=== PATIENT | male | born 1980 | race Caucasian/White ===

== ENCOUNTER 2018-06-04 10:54 | Emergency (ER) | payer BC ==
[~2018-06-04] VITALS: Ht 175.3 cm; Wt 124.7 kg
[2018-06-04 11:08] VITALS: BP 155/87
--- NOTE | 2018-06-04 11:56 | RAD ---
KNEE LEFT 3V History: Left knee pain after working out one day ago, buckling of the knee while falling Comparison: None. Findings: 3 views of the left knee are submitted. No acute fracture or dislocation is identified. There is relative superior elevation of the patella. Joint spaces are adequate. Impression: 1. No acute fracture is identified. 2. There is somewhat superior elevation of the patella, question if any suspicion for patellar tendon injury? Electronically signed by: Dread Bailon MD (06/04/2018 11:53 AM) [facility] [place]
[2018-06-04] MEDS ORDERED: HYDR-971 PO (12:03)
--- NOTE | 2018-06-04 12:03 | PHYS DOC ---
Past Medical History Past Medical History: Asthma Past Surgical History: No Surgical History Alcohol Use: None Drug Use: None Adult General Chief Complaint Chief Complaint: KNEE INJURY HPI HPI Patient is a 37 year old male who presents with left knee pain. The patient states that he was working out at the gym and slipped on a wet area of the floor. He felt a tearing above his left knee. He is continuing to have pain in that area and states that it is very painful to flex his knee. He denies any other injury. He is able to ambulate on that extremity but states that it is tender to do so. Review of Systems Review of Systems Constitutional: Denies fever or chills [] Respiratory: Denies cough or shortness of breath [] Cardiovascular: No additional information not addressed in HPI [] GI: Denies abdominal pain, nausea, vomiting, bloody stools or diarrhea [] : Denies dysuria or hematuria [] Musculoskeletal: See history of present illness Integument: Denies rash or skin lesions [] Neurologic: Denies headache, focal weakness or sensory changes [] Endocrine: Denies polyuria or polydipsia [] All other systems were reviewed and found to be within normal limits, except as documented in this note. Allergies Allergies Allergies Coded Allergies Type Severity Reaction Last Updated Verified No Known Drug Allergies 06/04/18 No Physical Exam Physical Exam Constitutional: Well developed, well nourished, no acute distress, non-toxic appearance. [] HENT: Normocephalic, atraumatic, bilateral external ears normal, oropharynx moist, no oral exudates, nose normal. [] Eyes: PERRLA, EOMI, conjunctiva normal, no discharge. [] Neck: Normal range of motion, no tenderness, supple, no stridor. [] Cardiovascular:Heart rate regular rhythm, no murmur [] Lungs & Thorax: Bilateral breath sounds clear to auscultation [] Abdomen: Bowel sounds normal, soft, no tenderness, no masses, no pulsatile masses. [] Skin: Warm, dry, no erythema, no rash. [] Back: No tenderness, no CVA tenderness. [] Extremities: tenderness to patella, crepitus noted, no cyanosis, no clubbing, ROM decreased due to pain, no fluid noted around knee Neurologic: Alert and oriented X 3, normal motor function, normal sensory function, no focal deficits noted. [] Psychologic: Affect normal, judgement normal, mood normal. [] Current Patient Data Vital Signs Vital Signs Date Time Temp Pulse Resp B/P (MAP) Pulse Ox O2 Delivery O2 Flow Rate FiO2 06/04/18 11:08 98.0 79 16 155/87 (109) 97 Room Air 98.0 EKG EKG [] Radiology/Procedures Radiology/Procedures []PATIENT: KATIE BARNES CACCOUNT: [id number]#: [id number] : 1980 LOCATION: ER AGE: 37 SEX: M EXAM STATUS: REG ER ORD. PHYSICIAN: CHERY PORTILLO APRN REASON: injury working out yesterday PROCEDURE: KNEE LEFT 3V KNEE LEFT 3V History: Left knee pain after working out one day ago, buckling of the knee while falling Comparison: None. Findings: 3 views of the left knee are submitted. No acute fracture or dislocation is identified. There is relative superior elevation of the patella. Joint spaces are adequate. Impression: 1. No acute fracture is identified. 2. There is somewhat superior elevation of the patella, question if any suspicion for patellar tendon injury? Electronically signed by: Harsh Quezada MD (06/04/2018 11:53 AM) [place] DICTATED and SIGNED BY: HARSH QUEZADA MD DATE: 06/04/18 1151 Course & Med Decision Making Course & Med Decision Making Pertinent Labs and Imaging studies reviewed. (See chart for details) He was placed in a knee immobilizer and will follow up with Dr. Avina for further evaluation. Dragon Disclaimer Dragon Disclaimer This electronic medical record was generated, in whole or in part, using a voice recognition dictation system. Departure Departure Impression: Primary Impression: Patellar tendon strain Disposition: 01 HOME, SELF-CARE Condition: STABLE Referrals: JUSTINE REGALADO DO (PCP) ANGELIQUE AVINA MD Patient Instructions: Patellar Tendon Tear/Disruption with [facility] Additional Instructions: Follow-up with Dr. Avina at his earliest available. Keep the knee immobilizer on except for showering. You have been prescribed pain medication. Do not drive or operate heavy machinery while taking this medication. Scripts Hydrocodone/Apap 5-325 (NORCO 5-325 TABLET) 1 Each Tablet 1 TAB PO PRN Q6HRS PRN for PAIN, #10 TAB 0 Refills Prov: CHERY PORTILLO APRN 06/04/18 CHERY PORTILLO APRN Jun 04, 2018 12:03
== END 2018-06-04 12:13 | disposition home or self-care (01) ==
LOC: ER 10:54
DX: S76.112A Strain of left quadriceps muscle, fascia and tendon, initial encounter (principal); M23.8X2 Other internal derangements of left knee; J45.909 Unspecified asthma, uncomplicated; W01.0XXA Fall on same level from slipping, tripping and stumbling without subsequent striking against object, initial encounter; Y93.89 Activity, other specified; Y92.39 Other specified sports and athletic area as the place of occurrence of the external cause; Y99.8 Other external cause status
CPT/HCPCS: 29505; 73562; 99284

== ENCOUNTER → 2018-10-11 | Outpatient (CLI) | payer BC ==
[~2018-10-11] MED LIST: ALBU2.5V8 INH; HYDR-3164 PO; IBUP200T58 PO; OXYC1TAB19 PO
--- NOTE | 2018-10-11 16:21 | KCIC ---
EXAM: MRI LEFT KNEE DATE: 10/11/2018 2:45 PM CLINICAL INDICATION: Left knee pain and crepitus on physical exam. Hyperextension injury. Anterior knee pain. COMPARISON: radiographs 06/04/2018. TECHNIQUE: Multiplanar, multisequence MRI of the left knee was performed without contrast. FINDINGS: No knee joint effusion. Small Haywood's cyst. The ACL and PCL are intact. The MCL, fibular collateral ligament, biceps femoris and IT band are intact. The popliteus tendon is intact, normal in signal and morphology. Neutral patellar tracking. Borderline trochlear dysplasia on the basis of facet asymmetry measuring 38%. There is thickening of the patellar tendon at the patellar attachment measuring up to 1.1 cm suggesting patellar tendinosis. Medial meniscus: Intact Lateral meniscus: Intact T1 marrow signal is grossly preserved. No evidence for fracture or osteonecrosis. There is a full-thickness cartilage defect at the inferior aspect of the medial trochlea with associated subchondral edema. A 6 mm T2 mildly hyperintense focus (series 10 image 24, series 4 image 11) is seen within the Haywood's cyst, possibly displaced chondral fragment. IMPRESSION: 1. Full-thickness cartilage defect with subchondral edema is seen at the inferior aspect of the medial trochlea. The chondral fragment may be displaced into the Haywood's cyst. 2. Trochlear dysplasia Electronically signed by: Timothy Ramírez MD (10/11/2018 4:18 PM) [id number]
== END | disposition home or self-care (01) ==
LOC: KCIC MRI 14:00
PROVIDERS: ATTEND Orthopaedic Surgery
DX: M22.2X2 Patellofemoral disorders, left knee (principal); R60.0 Localized edema
CPT/HCPCS: 73721

== ENCOUNTER 2018-11-24 08:19 | Day surgery (SDC) | payer BC ==
[~2018-11-24] VITALS: Ht 175.3 cm; Wt 93.4 kg
[~2018-11-24 08:19] MED LIST changes: -ALBU2.5V8 INH; +BUPIVAC MPF-EPI 0.5%-1:200000 30 ML VIAL. ONE; +HYDROmorphone 2 MG/ML VIAL IV PRN; -IBUP200T58 PO; +IV RINGERS,LACTATED 1000ML 1,000 ML IV SCH; +LIDOCAINE 1% PF 2 ML VIAL. ID PRN; +MORPHINE SULFATE 2 MG/ML VIAL. IV PRN; +ONDANSETRON PF 4 MG/2 ML VIAL. IV PRN; -OXYC1TAB19 PO; +PROCHLORPERAZINE 10 MG/2 ML VIAL. IV PRN; +fentaNYL PF VIAL 100 MCG/2 ML VIAL IV PRN
[2018-11-24] MEDS ORDERED: BUPIVAC MPF-EPI 0.5%-1:200000 30 ML VIAL. ONE (08:31)
[2018-11-24] MEDS ORDERED: SEVOFLURANE 31 TO 60 MINUTES. IH ONE (08:39)
[2018-11-24] MEDS ORDERED: ONDANSETRON PF 4 MG/2 ML VIAL. ONE (08:40)
[2018-11-24] MEDS ORDERED: LIDOCAINE 2% PF 5 ML VIAL. ONE (08:40)
[2018-11-24] MEDS ORDERED: PROPOFOL 20 ML IV ONE (08:40)
[2018-11-24] MEDS ORDERED: KETOROLAC 30 MG/ML INJ FOR OR. INJ ONE (08:40)
[2018-11-24] MEDS ORDERED: DEXAMETHASONE SOD PHOS 20 MG/5 ML VIAL. ONE (08:40)
[2018-11-24] MEDS ORDERED: fentaNYL PF VIAL 100 MCG/2 ML VIAL ONE ×2 (08:40→10:22)
[2018-11-24] MEDS ORDERED: MIDAZOLAM HCL/PF 2 MG/2 ML VIAL. ONE (08:40)
[2018-11-24] MEDS ORDERED: ALBU2.5V8 INH (09:13)
[2018-11-24] MEDS ORDERED: IBUP200T58 PO (09:15)
[2018-11-24] MEDS ORDERED: ceFAZolin 2GM PREMIX 2 GM/50 ML BAG IV ONE (10:00)
--- NOTE | 2018-11-24 10:59 | PDOC4 ---
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 Estimated blood loss: 10 mL Complications: None Operative indications: See my preoperative note for detail operative indications note that he has a full-thickness medial trochlear chondral flap tear that is very symptomatic for him he also has refractory patellar tendinitis and I gone over with him the possibility of microfracture which results in fibrocartilage and cartilage transplant is the only way to reliably regenerate hyaline cartilage. I went over the risks benefits postoperative course including the possibility of graft failure infection continued pain nerve or blood vessel damage medical or other anesthetic competitions among others and reviewed the long postoperative course of protection of the implant weightbearing restrictions as well as activity all his questions were answered he wishes to proceed with surgical evaluation and treatment. Operative text: Patient was identified procedure verified patient placed in the supine position on the operating table. After adequate amounts of general anesthesia were administered the left lower extremity was prepped and draped in standard sterile fashion with a thigh tourniquet. After timeout was performed patient procedure identified and verified the left lower extremity was exsanguinated by Esmarch bandage tourniquet inflated to 350 mmHg a standard lateral portal was established a medial portal established using spinal needle localization and the knee joint was systematically examined. He was confirmed to have a full-thickness cartilage defect with overlying chondral flap tear of the medial trochlear groove medial meniscus and ACL were probed and found to be intact. Lateral meniscus had a free edge tear and fraying at the posterior root which was debrided back to stable tissue. After preparation of the medial femoral condyle defect which was approximately 8 mm x 1 cm oval shaped. The knee was evacuated of arthroscopic fluid the medial incision was enlarged [place] retractor was placed and the base of the defect was dried. A total of 1 package of de meg cartilage transplant was placed at the base and overlying Tisseel fibrin glue was placed to seal the graft in place. This was allowed to dry while the PRP injection was processed and a total of 5 mL platelet rich plasma was injected into the patellar tendon sheath area. Closure accomplished with buried Vicryl subcuticular Monocryl Steri-Strips and Mastisol sterile dressings were applied patient was returned recovery room in stable condition having tolerated procedure well. Postoperatively he was given the de meg rehabilitation protocol to guide his postoperative restrictions and ongoing therapy ANGELIQUE AVINA MD Nov 24, 2018 10:59
[2018-11-24] MEDS: fentaNYL PF VIAL 100 MCG/2 ML VIAL IV PRN ×2 (11:23→11:39)
[2018-11-24] MEDS ORDERED: OXYC1TAB19 PO (11:24)
--- NOTE | 2018-11-24 11:25 | DISCH ---
DISCHARGE INSTRUCTIONS Condition on Discharge Condition on Discharge: Stable Activity After Discharge Activity Instructions for Disc: Other, see below (nonweightbearing to left leg per de meg attached protocol. Gentle range of motion left knee only about 0-30 but generally keep the knee more straight slight bend) Diet after Discharge Diet after Discharge: Regular Wound Incision Care Wound/Incision Care: Change dressing (remove dressing in 2 days may then shower ) Community/Resources/Services Services at Discharge: PT EVALUATE & TREAT (take de meg protocol to physical therapy so they can go by the restrictions written) Contacting the after DC Call your doctor for: Concerns you may have Follow-Up Follow up with: Dr. Lema 10 days ANGELIQUE LEMA MD Nov 24, 2018 11:25
[2018-11-24] MEDS ORDERED: oxyCODONE/APAP 7.5/325 1 TAB TABLET PO ONE (11:30)
[2018-11-24 11:50] VITALS: BP 150/85
== END 2018-11-24 12:38 | disposition home or self-care (01) ==
LOC: SURG 08:19
PROVIDERS: ATTEND Orthopaedic Surgery
DX: S83.282A Other tear of lateral meniscus, current injury, left knee, initial encounter (principal); S83.242A Other tear of medial meniscus, current injury, left knee, initial encounter; J45.909 Unspecified asthma, uncomplicated; Z91.010 Allergy to peanuts; Z98.890 Other specified postprocedural states; M76.52 Patellar tendinitis, left knee; X58.XXXA Exposure to other specified factors, initial encounter; Y93.89 Activity, other specified; Y92.89 Other specified places as the place of occurrence of the external cause; Y99.8 Other external cause status
CPT/HCPCS: 0232T; 29881; A7015; C1762; C1782; J0696; J1100; J1885; J2001; J2250; J2405; J2704; J3010; J3490; J7120